=== PATIENT | female | born 1970 | race Caucasian/White ===

== ENCOUNTER 2025-05-24 15:31 | Outpatient (CLI) | payer OTHER ==
--- NOTE | 2025-05-24 16:53 | RADIOLOGY REPORT ---
EXAM: MR MRI LUMBAR SPINE CLINICAL HISTORY: LOW BACK PAIN;RADICULOPATHY, LUMBAR REGION COMPARISON: None TECHNIQUE: MRI imaging of the lumbar was performed on a MRI imaging system without intravenous contrast. FINDINGS: 5 [id number] lumbar-type vertebrae. Straightening of the lumbar lordosis. The vertebral body heights are relatively maintained. Small hemangioma/fatty rests within the L3 and L4 vertebral bodies. Heterogeneous marrow signal on T1 and T2 which fat saturates out on STIR. The conus terminates at the level of L1-L2 with no abnormal cord signal. T12-L1 tu L3-L4: No significant spinal canal or neural foramina stenosis. L4-L5: Minimal posterior disc bulge with superimposed left eccentric disc extrusion measuring up to 7 mm in AP diameter and 14 mm in transverse diameter slightly extending inferior to the superior L5 vertebral body , compressing the left L5 traversing nerve root causing moderate spinal canal stenosis. Mild left- sided neural foramina stenosis. Mild right facet effusion. L5-S1: Minimal posterior disc bulge without significant spinal canal or neural foramina stenosis. The paraspinal muscles are unremarkable. IMPRESSION: Minimal posterior disc bulge with left eccentric disc extrusion at L4-L5 causing moderate spinal canal stenosis with compression of the left L5 traversing nerve root.
== END 2025-05-24 23:59 | disposition home or self-care (01) ==
LOC: MRI 15:31
PROVIDERS: ATTEND Family Medicine
DX: M47.26 Other spondylosis with radiculopathy, lumbar region (principal); M54.50 Low back pain, unspecified
CPT/HCPCS: 72148